=== PATIENT | female | born 1940 | race Caucasian/White ===

== ENCOUNTER 2018-08-12 14:22 | Emergency (ER) | payer MEDICARE ==
--- NOTE | 2018-08-12 14:33 | ERPHSYRPT ---
- History of Present Illness Time Seen by Provider: 08/12/18 14:33 Historian: patient Exam Limitations: no limitations Physician History: 77 y/o white female presents with cp intermittently for several day and nausea intermittently for 2 weeks. pt has a sig cardiac hx with cadz and cabg in past. pt denies soa. pt denies abd pain. initially there was radiation into left neck and back but radiation has resolved. Timing/Duration: day(s) (several days), intermittent Activities at Onset: none Quality: pressure Location: substernal Chest Pain Radiation: neck, back Severity of Pain-Max: mild Severity of Pain-Current: mild Modifying Factors: Improves With: nothing Associated Symptoms: nausea, fatigue, No cough Prior Chest Pain/Cardiac Workup: cardiac cath, heart attack Nitro Today/Relief: no nitro taken today Aspirin Treatment Today: 81 mg x 1 Allergies/Adverse Reactions: Iodinated Contrast- Oral and IV Dye [Iodinated Contrast Media - IV Dye] Allergy (Verified 08/12/18 14:55) shellfish derived Allergy (Verified 08/12/18 14:55) Home Medications: Aspirin [Aspir-Low] 81 mg PO DAILY 05/10/16 [History] Cholecalciferol (Vitamin D3) [Vitamin D] 1,000 unit PO DAILY 05/10/16 [ History] Simvastatin 40 mg [Zocor 40 mg] 40 mg DAILY 05/10/16 [History] Amlodipine Besylate 10 mg PO DAILY 08/12/18 [History] Clopidogrel Bisulfate [Clopidogrel] 75 mg PO DAILY 08/12/18 [History] Fluoxetine HCl 40 mg PO DAILY 08/12/18 [History] Hx Influenza Vaccination/Date Given: Yes - Review of Systems Constitutional: No Symptoms Eyes: No Symptoms Ears, Nose, & Throat: No Symptoms Respiratory: No Symptoms Cardiac: Chest Pain, No Palpitations, No Syncope Abdominal/Gastrointestinal: Nausea, No Abdominal Pain, No Vomiting, No Diarrhea Genitourinary Symptoms: No Symptoms, No Dysuria, No Frequency, No Hematuria Musculoskeletal: No Symptoms, No Back Pain, No Fall Skin: No Symptoms Neurological: No Symptoms Psychological: No Symptoms Endocrine: No Symptoms Hematologic/Lymphatic: No Symptoms Immunological/Allergic: No Symptoms All Other Systems: Reviewed and Negative - Past Medical History Pertinent Past Medical History: Yes Neurological History: Stroke ENT History: No Pertinent History Cardiac History: Coronary Artery Disease, Hypertension Respiratory History: No Pertinent History Endocrine Medical History: No Pertinent History Musculoskeletal History: Arthritis GI Medical History: No Pertinent History History: No Pertinent History Psycho-Social History: Depression Female Reproductive Disorders: No Pertinent History - Past Surgical History Past Surgical History: Yes Neuro Surgical History: No Pertinent History Cardiac: CABG, Cardiac Stent Respiratory: No Pertinent History Gastrointestinal: Colon Resection Genitourinary: No Pertinent History Musculoskeletal: No Pertinent History Female Surgical History: Hysterectomy Other Surgical History: benign moles removed from left cheek on Sunday, bandaid on face - Social History Smoking Status: Never smoker Exposure to second hand smoke: No Drug Use: none Patient Lives Alone: No - Nursing Vital Signs Nursing Vital Signs: Initial Vital Signs Pulse Rate 68 08/12/18 14:30 Respiratory Rate 25 H 08/12/18 14:30 Blood Pressure 178/94 08/12/18 14:30 O2 Sat by Pulse Oximetry 97 08/12/18 14:30 Pain Scale Pain Intensity 8 - Physical Exam General Appearance: no apparent distress, alert, anxiety Eye Exam: PERRL/EOMI Ears, Nose, Throat Exam: normal ENT inspection, moist mucous membranes Neck Exam: normal inspection, non-tender, supple, full range of motion Respiratory Exam: normal breath sounds, chest tenderness, lungs clear, airway intact, No respiratory distress, No accessory muscle use, No rhonchi, No wheezing, No stridor Cardiovascular Exam: regular rate/rhythm, normal heart sounds, normal peripheral pulses Gastrointestinal/Abdomen Exam: soft, normal bowel sounds, No tenderness, No guarding Pelvic Exam: not done Rectal Exam: not done Back Exam: normal inspection Extremity Exam: normal inspection, normal range of motion, pelvis stable Neurologic Exam: alert, oriented x 3, cooperative, can intake worker II-XII nml as tested Skin Exam: normal color, warm, dry Lymphatic Exam: No adenopathy SpO2 Interpretation: normal O2 Delivery: Room Air - Course Nursing assessment & vital signs reviewed: Yes EKG Interpreted by Me: RATE (68), Sinus Rhythm, NORMAL AXIS, Non-specific ST Changes, Other (no sig changes in ekg when compared to ekg dated 05/10/16) Ordered Tests: Active Orders 24 hr Category Date Time Status Human Resource Advisor STAT Care 08/12/18 14:34 Active EKG-ER Only STAT Care 08/12/18 14:33 Active IV Insertion STAT Care 08/12/18 14:33 Active Pulse Oximetry (ED) STAT Care 08/12/18 14:33 Active CHEST 1 VIEW (PORTABLE) Stat Exams 08/12/18 14:34 Completed CBC W DIFF Stat Lab 08/12/18 14:48 Completed CMP Stat Lab 08/12/18 14:48 Completed D-DIMER QUANTITATION Stat Lab 08/12/18 14:48 Completed NT PRO BNP Stat Lab 08/12/18 14:48 Completed PROTIME WITH INR Stat Lab 08/12/18 14:48 Completed TROPONIN Q3H Lab 08/12/18 14:48 Completed TROPONIN Q3H Lab 08/12/18 17:50 Completed TROPONIN Q3H Lab 08/12/18 20:45 Ordered TROPONIN Q3H Lab 08/13/18 02:45 Ordered TROPONIN Routine Lab 08/12/18 23:45 Ordered UA W/RFX UR CULTURE Stat Lab 08/12/18 15:49 Completed Medication Summary Discontinued Medications Generic Name Dose Route Start Last Admin Trade Name Freq PRN Reason Stop Dose Admin Aspirin 243 mg 08/12/18 14:50 08/12/18 15:04 Baby Aspirin 81 Mg Chew PO 08/12/18 14:51 243 mg STAT ONE Administration Aspirin Confirm 08/12/18 15:00 Baby Aspirin 81 Mg Chew Administered 08/12/18 15:01 Dose 243 mg .ROUTE .STK-MED ONE Nitroglycerin 0.4 mg 08/12/18 14:50 08/12/18 15:05 Nitrostat 0.4 Mg (Ed) SL 08/12/18 14:51 0.4 mg STAT ONE Administration Nitroglycerin Confirm 08/12/18 15:00 Nitrostat 0.4 Mg (Ed) Administered 08/12/18 15:01 Dose 0.4 mg SL .STK-MED ONE Ondansetron HCl 4 mg 08/12/18 14:50 08/12/18 15:05 Zofran 4 Mg/2 Ml Vial IV 08/12/18 14:51 4 mg STAT ONE Administration Ondansetron HCl Confirm 08/12/18 15:00 Zofran 4 Mg/2 Ml Vial Administered 08/12/18 15:01 Dose 4 mg .ROUTE .STK-MED ONE Lab/Rad Data: Laboratory Result Diagrams 08/12/18 14:48 08/12/18 14:48 Laboratory Results 08/12/18 08/12/18 08/12/18 Range/Units 17:50 16:20 15:49 WBC (4.0-10.5) K/mm3 RBC (4.1-5.4) M/mm3 Hgb (12.0-16.0) gm/dl Hct (35-47) % MCV (78-100) fl MCH (26-32) pg MCHC (32-36) g/dl RDW (11.5-14.0) % Plt Count (150-450) K/mm3 MPV (6-9.5) fl Gran % (36.0-66.0) % Eos # (Auto) (0-0.5) Absolute Lymphs (auto) (1.0-4.6) Absolute Monos (auto) (0.0-1.3) Lymphocytes % (24.0-44.0) % Monocytes % (0.0-12.0) % Eosinophils % (0.00-5.0) % Basophils % (0.0-0.4) % Absolute Granulocytes (1.4-6.9) Basophils # (0-0.4) PT (9.95-12.35) SECONDS INR (0.8-3.0) D-Dimer (215-500) ng/mL Sodium (137-145) mmol/L Potassium (3.5-5.1) mmol/L Chloride (98-107) mmol/L Carbon Dioxide (22-30) mmol/L Anion Gap (5-15) MEQ/L BUN (7-17) mg/dL Creatinine (0.52-1.04) mg/dL Estimated GFR ML/MIN Glucose (74-106) mg/dL Calcium (8.4-10.2) mg/dL Total Bilirubin (0.2-1.3) mg/dL AST (14-36) U/L ALT (0-35) U/L Alkaline Phosphatase (38-126) U/L Troponin I < 0.012 Cancelled (0.000-0.034) ng/mL NT-Pro-B Natriuret Pep (0-1800) pg/mL Serum Total Protein (6.3-8.2) g/dL Albumin (3.5-5.0) g/dL Urine Color STRAW (YELLOW) Urine Appearance CLEAR (CLEAR) Urine pH 6.0 (5-6) Ur Specific [place] 1.004 (1.005-1.025) Urine Protein NEGATIVE (Negative) Urine Ketones NEGATIVE (NEGATIVE) Urine Blood NEGATIVE (0-5) Jefe/ul Urine Nitrite NEGATIVE (NEGATIVE) Urine Bilirubin NEGATIVE (NEGATIVE) Urine Urobilinogen NORMAL (0-1) mg/dL Ur Leukocyte Esterase SMALL (NEGATIVE) Urine WBC (Auto) NONE SEEN (0-5) /HPF Urine RBC (Auto) NONE SEEN (0-2) /HPF U Epithel Cells (Auto) NONE (FEW) /HPF Urine Bacteria (Auto) RARE (NEGATIVE) /HPF Urine Culture Reflexed NO (NO) Urine Glucose NEGATIVE (NEGATIVE) mg/dL 08/12/18 08/12/18 08/12/18 Range/Units 14:48 14:48 14:48 WBC (4.0-10.5) K/mm3 RBC (4.1-5.4) M/mm3 Hgb (12.0-16.0) gm/dl Hct (35-47) % MCV (78-100) fl MCH (26-32) pg MCHC (32-36) g/dl RDW (11.5-14.0) % Plt Count (150-450) K/mm3 MPV (6-9.5) fl Gran % (36.0-66.0) % Eos # (Auto) (0-0.5) Absolute Lymphs (auto) (1.0-4.6) Absolute Monos (auto) (0.0-1.3) Lymphocytes % (24.0-44.0) % Monocytes % (0.0-12.0) % Eosinophils % (0.00-5.0) % Basophils % (0.0-0.4) % Absolute Granulocytes (1.4-6.9) Basophils # (0-0.4) PT 12.6 H (9.95-12.35) SECONDS INR 1.08 (0.8-3.0) D-Dimer 400 (215-500) ng/mL Sodium 136 L (137-145) mmol/L Potassium 4.1 (3.5-5.1) mmol/L Chloride 106 (98-107) mmol/L Carbon Dioxide 20 L (22-30) mmol/L Anion Gap 15.1 H (5-15) MEQ/L BUN 13 (7-17) mg/dL Creatinine 0.76 (0.52-1.04) mg/dL Estimated GFR > 60.0 ML/MIN Glucose 130 H (74-106) mg/dL Calcium 8.8 (8.4-10.2) mg/dL Total Bilirubin 0.80 (0.2-1.3) mg/dL AST 41 H (14-36) U/L ALT 24 (0-35) U/L Alkaline Phosphatase 67 (38-126) U/L Troponin I < 0.012 (0.000-0.034) ng/mL NT-Pro-B Natriuret Pep 182 (0-1800) pg/mL Serum Total Protein 7.6 (6.3-8.2) g/dL Albumin 4.4 (3.5-5.0) g/dL Urine Color (YELLOW) Urine Appearance (CLEAR) Urine pH (5-6) Ur Specific [place] (1.005-1.025) Urine Protein (Negative) Urine Ketones (NEGATIVE) Urine Blood (0-5) Jefe/ul Urine Nitrite (NEGATIVE) Urine Bilirubin (NEGATIVE) Urine Urobilinogen (0-1) mg/dL Ur Leukocyte Esterase (NEGATIVE) Urine WBC (Auto) (0-5) /HPF Urine RBC (Auto) (0-2) /HPF U Epithel Cells (Auto) (FEW) /HPF Urine Bacteria (Auto) (NEGATIVE) /HPF Urine Culture Reflexed (NO) Urine Glucose (NEGATIVE) mg/dL 08/12/18 Range/Units 14:48 WBC 5.7 (4.0-10.5) K/mm3 RBC 3.88 L (4.1-5.4) M/mm3 Hgb 12.9 (12.0-16.0) gm/dl Hct 39.1 (35-47) % MCV 100.8 H (78-100) fl MCH 33.2 H (26-32) pg MCHC 33.0 (32-36) g/dl RDW 13.4 (11.5-14.0) % Plt Count 225 (150-450) K/mm3 MPV 10.6 H (6-9.5) fl Gran % 59.3 (36.0-66.0) % Eos # (Auto) 0.13 (0-0.5) Absolute Lymphs (auto) 1.37 (1.0-4.6) Absolute Monos (auto) 0.78 (0.0-1.3) Lymphocytes % 24.0 (24.0-44.0) % Monocytes % 13.7 H (0.0-12.0) % Eosinophils % 2.3 (0.00-5.0) % Basophils % 0.7 (0.0-0.4) % Absolute Granulocytes 3.39 (1.4-6.9) Basophils # 0.04 (0-0.4) PT (9.95-12.35) SECONDS INR (0.8-3.0) D-Dimer (215-500) ng/mL Sodium (137-145) mmol/L Potassium (3.5-5.1) mmol/L Chloride (98-107) mmol/L Carbon Dioxide (22-30) mmol/L Anion Gap (5-15) MEQ/L BUN (7-17) mg/dL Creatinine (0.52-1.04) mg/dL Estimated GFR ML/MIN Glucose (74-106) mg/dL Calcium (8.4-10.2) mg/dL Total Bilirubin (0.2-1.3) mg/dL AST (14-36) U/L ALT (0-35) U/L Alkaline Phosphatase (38-126) U/L Troponin I (0.000-0.034) ng/mL NT-Pro-B Natriuret Pep (0-1800) pg/mL Serum Total Protein (6.3-8.2) g/dL Albumin (3.5-5.0) g/dL Urine Color (YELLOW) Urine Appearance (CLEAR) Urine pH (5-6) Ur Specific [place] (1.005-1.025) Urine Protein (Negative) Urine Ketones (NEGATIVE) Urine Blood (0-5) Jefe/ul Urine Nitrite (NEGATIVE) Urine Bilirubin (NEGATIVE) Urine Urobilinogen (0-1) mg/dL Ur Leukocyte Esterase (NEGATIVE) Urine WBC (Auto) (0-5) /HPF Urine RBC (Auto) (0-2) /HPF U Epithel Cells (Auto) (FEW) /HPF Urine Bacteria (Auto) (NEGATIVE) /HPF Urine Culture Reflexed (NO) Urine Glucose (NEGATIVE) mg/dL - Progress Progress: re-examined Air Movement: good Progress Note: 08/12/18 17:31 2nd ekg-hr 62, normal axis, nonspecific st changes. no change from prior ekg 08/12/18 18:36 pt states cp better after belching. 3 hour troponin normal Counseled pt/family regarding: lab results, diagnosis, need for follow-up, rad results - Departure Time of Disposition: 18:34 Departure Disposition: Home Clinical Impression: Chest pain Condition: Stable Critical Care Time: No Referrals: AVILA CARIAS [Primary Care Provider] - Additional Instructions: take your medications as prescribed. follow up with primary doctor and cardiac doctor for further managment.
[2018-08-12] MEDS ORDERED: BABY ASPIRIN 81 MG CHEW PO ONE (14:50)
[2018-08-12] MEDS ORDERED: Nitrostat 0.4 MG (ED) SL ONE ×2 (14:50→15:00)
[2018-08-12] MEDS ORDERED: Zofran 4 MG/2 ML VIAL IV ONE (14:50)
[2018-08-12 14:53] LABS: BASOPHIL % 0.7 % (0.0-0.4); Basophil (Absolute #) 0.04 (0-0.4); Eosinophil % 2.3 % (0.00-5.0); Eosinophil (Absolute #) 0.13 (0-0.5); Granulocyte Absolute (ANC) 3.39 (1.4-6.9); Granulocytes % 59.3 % (36.0-66.0); Hematocrit 39.1 % (35-47); Hemoglobin 12.9 gm/dl (12.0-16.0); Lymphocyte (Absolute #) 1.37 (1.0-4.6); Mean Cell Volume 100.8 fl (78-100); Mean Corpuscular Hemoglobin 33.2 pg (26-32); Mean Platelet Volume 10.6 fl (6-9.5); Monocyte (Absolute #) 0.78 (0.0-1.3); Monocytes % 13.7 % (0.0-12.0); Platelet Count 225 K/mm3 (150-450); Red Blood Count 3.88 M/mm3 (4.1-5.4); Red Cell Distribution Width 13.4 % (11.5-14.0); White Blood Count 5.7 K/mm3 (4.0-10.5)
--- NOTE | 2018-08-12 14:53 | XRAY ---
Indication: Chest pain. Comparison: None Portable apical lordotic chest clear with a few incidental tiny calcified granulomas. Heart is not enlarged with CABG surgery. Bony thorax intact with mild degenerative changes and scoliosis. Impression: Nonacute chest with chronic features.
[2018-08-12] MEDS ORDERED: Zofran 4 MG/2 ML VIAL ONE (15:00)
[2018-08-12] MEDS ORDERED: BABY ASPIRIN 81 MG CHEW ONE (15:00)
[2018-08-12 15:05] LABS: INR 1.08 (0.8-3.0); PROTIME 12.6 SECONDS (9.95-12.35)
[2018-08-12 16:12] LABS: ALBUMIN 4.4 g/dL (3.5-5.0); ALKALINE PHOSPHATASE 67 U/L (38-126); ANION GAP 15.1 MEQ/L (5-15); BLOOD UREA NITROGEN 13 mg/dL (7-17); CHLORIDE 106 mmol/L (98-107); Calcium 8.8 mg/dL (8.4-10.2); Carbon Dioxide 20 mmol/L (22-30); Creatinine 1 0.76 mg/dL (0.52-1.04); Glucose 130 mg/dL (74-106); NT PRO BNP 182 pg/mL (0-1800); Potassium 4.1 mmol/L (3.5-5.1); SGOT/AST 41 U/L (14-36); SGPT/ALT 24 U/L (0-35); SODIUM 136 mmol/L (137-145); Total Protein 7.6 g/dL (6.3-8.2)
[2018-08-12 17:37] VITALS: O2SAT 97
[2018-08-12 18:13] LABS: Appearance CLEAR (CLEAR); Bilirubin NEGATIVE (NEGATIVE); Glucose NEGATIVE (NEGATIVE); Ketones NEGATIVE (NEGATIVE); Leukocyte Esterase SMALL (NEGATIVE); Nitrite NEGATIVE (NEGATIVE); Protein,Urine Dip NEGATIVE (Negative); Specific Gravity 1.004 (1.005-1.025); Urobilinogen NORMAL mg/dL (0-1)
[2018-08-12 18:14] LABS: Bacteria RARE /HPF (NEGATIVE); Blood NEGATIVE Ery/ul (0-5); RBC NONE SEEN /HPF (0-2); WBC NONE SEEN /HPF (0-5)
[2018-08-12 18:50] VITALS: BP 146/69; PULSE 54
== END 2018-08-12 18:58 | disposition home or self-care (01) ==
LOC: ED 14:22
DX: R07.89 Other chest pain (principal); I25.810 Atherosclerosis of coronary artery bypass graft(s) without angina pectoris; Z79.899 Other long term (current) drug therapy; I10 Essential (primary) hypertension; F32.9 Major depressive disorder, single episode, unspecified
CPT/HCPCS: 36415; 71045; 80053; 81001; 83880; 84484; 85025; 85379; 85610; 93005; 93041; 96374; 99284; J2405; A9270-GY

== ENCOUNTER 2020-01-23 21:39 | Emergency (ER) | payer MEDICARE ==
[2020-01-23] MEDS ORDERED: Sodium Chloride 0.9% 1000 ML 1,000 ML IV SCH (22:15)
[2020-01-23 22:20] LABS: Absolute Neutrophil Ct (ANC) 4.16 (1.4-6.9); BASOPHIL % 0.7 % (0.0-0.4); Basophil (Absolute #) 0.05 (0-0.4); Eosinophil % 3.3 % (0.00-5.0); Eosinophil (Absolute #) 0.23 (0-0.5); Hematocrit 35.7 % (35-47); Hemoglobin 11.7 gm/dl (12.0-16.0); Lymphocyte (Absolute #) 1.57 (1.0-4.6); Lymphocytes % 22.3 % (24.0-44.0); Mean Cell Volume 98.9 fl (78-100); Mean Corpuscular Hemoglobin 32.4 pg (26-32); Mean Corpuscular Hgb Concent. 32.8 g/dl (32-36); Mean Platelet Volume 9.9 fl (7.5-11.0); Monocyte (Absolute #) 1.02 (0.0-1.3); Monocytes % 14.5 % (0.0-12.0); Neutrophil % 59.2 % (36.0-66.0); Platelet Count 225 K/mm3 (150-450); Red Blood Count 3.61 M/mm3 (4.1-5.4); Red Cell Distribution Width 13.7 % (11.5-14.0)
--- NOTE | 2020-01-23 22:25 | ERPHSYRPT ---
- History of Present Illness Time Seen by Provider: 01/23/20 21:55 Source: patient, family Exam Limitations: no limitations Patient Subjective Stated Complaint: family states that pts bp was low at home and she fell forward onto the bed. pt states she nearly passed out and hasnt been feeling well today. has had some dizziness today. family reports that pt's speech is not normal for her. Triage Nursing Assessment: pt awake and alert, answers questions approp. speech slurred . pt back per wheelchair and transfers to stretcher with assist of 1. respirations nonlabored. bilat upper and lower eztr strength equal. Physician History: This is a 79-year-old white female has a history of TIAs, CVAs, coronary disease, hypertension who was not feeling well all day today. Patient had a near syncopal episode earlier. Approximately 8:00 patient went into her bedroom and fell onto the bed this. It was the soft part of the bed. Her blood pressure was reading low at home. Patient takes metoprolol, amlodipine for her high blood pressure. Patient arrives from home speaking normally without evidence of any acute CVA symptoms. She is speaking clearly. She states that she was having some pressure in her chest but none at the time of this examination. She does not complain of any shortness of breath she has no abdo karyn pain. She denies nausea vomiting diarrhea. Patient's bench jeweler is Dr. Niko Angel. Timing/Duration: today Severity: mild Character of Deficits: none Deficits: off balance (Earlier today) Baseline/Normal Cognition: alert oriented x 3 Current Cognition: alert oriented x 3 Baseline Gait: walks w/o assistance Associated Symptoms: weakness, chest pain (Earlier today. None now), No slurred speech, No vision changes Allergies/Adverse Reactions: Iodinated Contrast Media [Iodinated Contrast Media - IV Dye] Allergy (Verified 08/12/18 14:55) shellfish derived Allergy (Verified 08/12/18 14:55) Home Medications: Aspirin [Aspir-Low] 81 mg PO DAILY 05/10/16 [History] Cholecalciferol (Vitamin D3) [Vitamin D] 1,000 unit PO DAILY 05/10/16 [History] Simvastatin 40 mg [Zocor 40 mg] 40 mg DAILY 05/10/16 [History] Amlodipine Besylate 10 mg PO DAILY 08/12/18 [History] Clopidogrel Bisulfate [Clopidogrel] 75 mg PO DAILY 08/12/18 [History] Fluoxetine HCl 40 mg PO DAILY 08/12/18 [History] Hx Influenza Vaccination/Date Given: Yes Travel Risk - International Travel Have you traveled outside of the country in past 3 weeks: No - Coronavirus Screening Are you exhibiting any of the following symptoms?: No Close contact with a COVID-19 positive Pt in past 14-21 Days: No - Review of Systems Constitutional: Weakness Eyes: No Symptoms Ears, Nose, & Throat: No Symptoms Respiratory: No Symptoms Cardiac: No Symptoms Abdominal/Gastrointestinal: No Symptoms Genitourinary Symptoms: No Symptoms Musculoskeletal: No Symptoms Skin: No Symptoms Neurological: No Symptoms Psychological: No Symptoms Endocrine: No Symptoms Hematologic/Lymphatic: No Symptoms Immunological/Allergic: No Symptoms All Other Systems: Reviewed and Negative - Past Medical History Pertinent Past Medical History: Yes Neurological History: Stroke ENT History: No Pertinent History Cardiac History: Coronary Artery Disease, Hypertension Respiratory History: No Pertinent History Endocrine Medical History: No Pertinent History Musculoskeletal History: Arthritis GI Medical History: No Pertinent History History: No Pertinent History Psycho-Social History: Depression Female Reproductive Disorders: No Pertinent History - Past Surgical History Past Surgical History: Yes Neuro Surgical History: No Pertinent History Cardiac: CABG, Cardiac Stent Respiratory: No Pertinent History Gastrointestinal: Colon Resection Genitourinary: No Pertinent History Musculoskeletal: No Pertinent History Female Surgical History: Hysterectomy Other Surgical History: e - Social History Smoking Status: Never smoker Exposure to second hand smoke: No Drug Use: none Patient Lives Alone: No - Nursing Vital Signs Nursing Vital Signs: Initial Vital Signs Pulse Rate 53 L 01/23/20 21:53 Respiratory Rate 16 01/23/20 21:53 Blood Pressure 129/71 01/23/20 21:53 O2 Sat by Pulse Oximetry 98 01/23/20 21:53 Pain Scale Pain Intensity 5 - [place] Coma Scale Best Eye Response ([place]): (4) open spontaneously Best Verbal Response ([place]): (5) oriented Best Motor Response ([place]): (6) obeys commands [place] Total: 15 - Physical Exam General Appearance: no apparent distress, alert, anxiety Eye Exam: bilateral eye: normal inspection, PERRL, EOMI Ears, Nose, Throat Exam: normal ENT inspection, moist mucous membranes Neck Exam: normal inspection, non-tender, supple, full range of motion Respiratory: normal breath sounds, lungs clear, respiratory distress, airway intact, No chest tenderness Cardiovascular: regular rate/rhythm, normal heart sounds, normal peripheral pulses, murmur Gastrointestinal: soft, normal bowel sounds, No tenderness Pelvic Exam: not done Rectal Exam: not done Back Exam: normal inspection, normal range of motion, No CVA tenderness, No vertebral tenderness Extremity Exam: normal inspection, normal range of motion, pelvis stable Mental Status: alert, oriented x 3, cooperative psychiatric social worker supervisor Exam: normal hearing, normal speech, PERRL, tongue midline Coordination/Gait: normal finger to nose Motor/Sensory: no motor deficit, no sensory deficit, no pronator drift Skin Exam: normal color, warm, dry SpO2 Interpretation: normal SpO2: 98 O2 Delivery: Room Air - Course Nursing assessment & vital signs reviewed: Yes EKG Interpreted by Me: RATE (52), Sinus Rhythm, NORMAL AXIS, NORMAL INTERVALS, Non-specific ST Changes, Other (Is left ventricular hypertrophy. There are no acute ischemic changes on current EKG. When compared to EKG dated 08/12/2018 there are no significant acute changes.) Ordered Tests: Active Orders 24 hr Category Date Time Status Director Of Sustainable Design STAT Care 01/23/20 22:09 Active EKG-ER Only STAT Care 01/23/20 22:08 Active IV Insertion STAT Care 01/23/20 22:08 Active NPO (ED) STAT Care 01/23/20 22:08 Active Pulse Oximetry (ED) STAT Care 01/23/20 22:08 Active HEAD WITHOUT CONTRAST [CT] Stat Exams 01/23/20 21:49 Taken CBC W DIFF Stat Lab 01/23/20 22:15 Completed CMP Stat Lab 01/23/20 22:10 Completed CULTURE,URINE Stat Lab 01/23/20 23:45 Received Lactic Acid Stat Lab 01/23/20 22:55 Completed PROTIME WITH INR Stat Lab 01/23/20 22:15 Completed TROPONIN Q3H Lab 01/23/20 22:15 Completed UA W/RFX UR CULTURE Stat Lab 01/23/20 23:45 Completed Medication Summary Generic Name Dose Route Start Last Admin Trade Name Freq PRN Reason Stop Dose Admin Sodium Chloride 1,000 mls @ 50 mls/hr 01/23/20 22:15 01/23/20 22:35 Sodium Chloride 0.9% 1000 Ml IV 02/22/20 22:14 50 mls/hr .Q20H RAUL Administration Lab/Rad Data: Laboratory Result Diagrams 01/23/20 22:15 01/23/20 22:10 Laboratory Results 01/23/20 01/23/20 01/23/20 Range/Units 23:45 22:55 22:15 WBC (4.0-10.5) K/mm3 RBC (4.1-5.4) M/mm3 Hgb (12.0-16.0) gm/dl Hct (35-47) % MCV (78-100) fl MCH (26-32) pg MCHC (32-36) g/dl RDW (11.5-14.0) % Plt Count (150-450) K/mm3 MPV (7.5-11.0) fl Gran % (36.0-66.0) % Eos # (Auto) (0-0.5) Absolute Lymphs (auto) (1.0-4.6) Absolute Monos (auto) (0.0-1.3) Lymphocytes % (24.0-44.0) % Monocytes % (0.0-12.0) % Eosinophils % (0.00-5.0) % Basophils % (0.0-0.4) % Absolute Granulocytes (1.4-6.9) Basophils # (0-0.4) PT (9.95-12.35) SECONDS INR (0.8-3.0) Sodium (137-145) mmol/L Potassium (3.5-5.1) mmol/L Chloride (98-107) mmol/L Carbon Dioxide (22-30) mmol/L Anion Gap (5-15) MEQ/L BUN (7-17) mg/dL Creatinine (0.52-1.04) mg/dL Estimated GFR ML/MIN Glucose (74-106) mg/dL Lactic Acid 1.1 (0.4-2.0) Calcium (8.4-10.2) mg/dL Total Bilirubin (0.2-1.3) mg/dL AST (14-36) U/L ALT (0-35) U/L Alkaline Phosphatase (38-126) U/L Troponin I < 0.012 (0.000-0.034) ng/mL Serum Total Protein (6.3-8.2) g/dL Albumin (3.5-5.0) g/dL Urine Color [place] (YELLOW) Urine Appearance SLIGHTLY CLOUDY (CLEAR) Urine pH 5.0 (5-6) Ur Specific [place] 1.028 (1.005-1.025) Urine Protein 30 (Negative) Urine Ketones NEGATIVE (NEGATIVE) Urine Blood NEGATIVE (0-5) Jefe/ul Urine Nitrite POSITIVE (NEGATIVE) Urine Bilirubin SMALL (NEGATIVE) Urine Urobilinogen 2 (0-1) mg/dL Ur Leukocyte Esterase TRACE (NEGATIVE) Urine WBC (Auto) 16-25 (0-5) /HPF Urine RBC (Auto) 0-2 (0-2) /HPF U Epithel Cells (Auto) NONE (FEW) /HPF Urine Bacteria (Auto) FEW (NEGATIVE) /HPF Urine Mucus (Auto) MODERATE (NEGATIVE) /HPF Urine Culture Reflexed YES (NO) Urine Glucose 50 (NEGATIVE) mg/dL 01/23/20 01/23/20 01/23/20 Range/Units 22:15 22:15 22:10 WBC 7.0 (4.0-10.5) K/mm3 RBC 3.61 L (4.1-5.4) M/mm3 Hgb 11.7 L (12.0-16.0) gm/dl Hct 35.7 (35-47) % MCV 98.9 (78-100) fl MCH 32.4 H (26-32) pg MCHC 32.8 (32-36) g/dl RDW 13.7 (11.5-14.0) % Plt Count 225 (150-450) K/mm3 MPV 9.9 (7.5-11.0) fl Gran % 59.2 (36.0-66.0) % Eos # (Auto) 0.23 (0-0.5) Absolute Lymphs (auto) 1.57 (1.0-4.6) Absolute Monos (auto) 1.02 (0.0-1.3) Lymphocytes % 22.3 L (24.0-44.0) % Monocytes % 14.5 H (0.0-12.0) % Eosinophils % 3.3 (0.00-5.0) % Basophils % 0.7 (0.0-0.4) % Absolute Granulocytes 4.16 (1.4-6.9) Basophils # 0.05 (0-0.4) PT 12.8 H (9.95-12.35) SECONDS INR 1.13 (0.8-3.0) Sodium 136 L (137-145) mmol/L Potassium 4.0 (3.5-5.1) mmol/L Chloride 103 (98-107) mmol/L Carbon Dioxide 26 (22-30) mmol/L Anion Gap 11.2 (5-15) MEQ/L BUN 15 (7-17) mg/dL Creatinine 0.91 (0.52-1.04) mg/dL Estimated GFR > 60.0 ML/MIN Glucose 108 H (74-106) mg/dL Lactic Acid (0.4-2.0) Calcium 8.6 (8.4-10.2) mg/dL Total Bilirubin 0.40 (0.2-1.3) mg/dL AST 42 H (14-36) U/L ALT 34 (0-35) U/L Alkaline Phosphatase 83 (38-126) U/L Troponin I (0.000-0.034) ng/mL Serum Total Protein 6.9 (6.3-8.2) g/dL Albumin 4.0 (3.5-5.0) g/dL Urine Color (YELLOW) Urine Appearance (CLEAR) Urine pH (5-6) Ur Specific [place] (1.005-1.025) Urine Protein (Negative) Urine Ketones (NEGATIVE) Urine Blood (0-5) Jefe/ul Urine Nitrite (NEGATIVE) Urine Bilirubin (NEGATIVE) Urine Urobilinogen (0-1) mg/dL Ur Leukocyte Esterase (NEGATIVE) Urine WBC (Auto) (0-5) /HPF Urine RBC (Auto) (0-2) /HPF U Epithel Cells (Auto) (FEW) /HPF Urine Bacteria (Auto) (NEGATIVE) /HPF Urine Mucus (Auto) (NEGATIVE) /HPF Urine Culture Reflexed (NO) Urine Glucose (NEGATIVE) mg/dL - Progress Progress: improved, re-examined Progress Note: 01/24/20 00:02 Patient states she is feeling much better. Her and her daughter feel comfortable going home if her troponin is normal and her urinalysis is either clear or his urinary tract infection that can be treated as an outpatient. Patient has no abdominal pain she has no chest pain and she has no shortness of breath at this time. 01/24/20 00:09 CAT scan of the head reveals remote lacunar infarct in the right thalamus and the left basal ganglia. 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 On the report of the CAT scan from the radiologist, there is no mention of any acute intracranial abnormality 01/24/20 01:23 States she is is ready to be discharged to home. She is in joking and laughing with her daughter. She has no abdominal pain, no chest pain and no shortness of breath. Counseled pt/family regarding: lab results, diagnosis, need for follow-up, rad results - Departure Departure Disposition: Home Clinical Impression: Weakness, UTI (urinary tract infection) Condition: Stable Critical Care Time: No Referrals: AVILA CARIAS [Primary Care Provider] - Additional Instructions: Drink plenty of fluids. Fill your antibiotic prescription later today. Return to the emergency department if your symptoms worsen. Follow-up with your primary care physician for persistent symptoms. Prescriptions: Ciprofloxacin [Cipro 500 MG] 500 mg PO BID #14 tablet
[2020-01-23 22:26] LABS: INR 1.13 (0.8-3.0); PROTIME 12.8 SECONDS (9.95-12.35)
[2020-01-23 22:30] LABS: ALKALINE PHOSPHATASE 83 U/L (38-126); ANION GAP 11.2 MEQ/L (5-15); BLOOD UREA NITROGEN 15 mg/dL (7-17); CHLORIDE 103 mmol/L (98-107); Calcium 8.6 mg/dL (8.4-10.2); Carbon Dioxide 26 mmol/L (22-30); Creatinine 1 0.91 mg/dL (0.52-1.04); Glucose 108 mg/dL (74-106); SGOT/AST 42 U/L (14-36); SGPT/ALT 34 U/L (0-35); SODIUM 136 mmol/L (137-145); Total Protein 6.9 g/dL (6.3-8.2)
[2020-01-23] MEDS ORDERED: Sodium Chloride 0.9% 1000 ML 1,000 ML ONE (22:30)
[2020-01-24 00:02] LABS: Appearance SLIGHTLY CLOUDY (CLEAR); Bacteria FEW /HPF (NEGATIVE); Bilirubin SMALL (NEGATIVE); Blood NEGATIVE Ery/ul (0-5); Glucose 50 mg/dL (NEGATIVE); Ketones NEGATIVE (NEGATIVE); Leukocyte Esterase TRACE (NEGATIVE); Mucus MODERATE /HPF (NEGATIVE); Nitrite POSITIVE (NEGATIVE); Protein,Urine Dip 30 (Negative); RBC 0-2 /HPF (0-2); Specific Gravity 1.028 (1.005-1.025); Urobilinogen 2 mg/dL (0-1)
[2020-01-24] MEDS ORDERED: ROCEPHIN 1 Gm-D5w 50 ml Bag** 1 G/50 ML IVPB IV STA (01:22)
[2020-01-24] MEDS ORDERED: ROCEPHIN 1 Gm-D5w 50 ml Bag** 1 G/50 ML IVPB IV ONE (01:34)
[2020-01-24 01:56] VITALS: BP 136/97; PULSE 59; O2SAT 97
--- NOTE | 2020-01-24 08:13 | XRAY ---
Indication: Stroke symptoms. Dizziness prior to fall. History stroke. Multiple contiguous axial images obtained through the head without contrast. Comparison: May 10, 2016. There remains age-appropriate global atrophy and mild periventricular degenerative micro-ischemia bilaterally. Stable small right cerebellum and tiny left cerebellum old infarcts. New finding for old lacunar infarcts right thalamus and left basal ganglia. No acute intracranial hemorrhage, hydrocephalus, or mass effect. Fourth ventricle is midline. Bony calvarium intact. Visualized paranasal sinuses and mastoid air cells are clear. Impression: 1. New finding old lacunar infarcts right thalamus and left basal ganglia. 2. Again atrophy, degenerative micro-ischemia, and old bilateral cerebellar infarcts. 3. No acute intracranial abnormalities.
== END 2020-01-24 02:10 | disposition home or self-care (01) ==
LOC: ED 21:39
DX: R53.1 Weakness (principal); N39.0 Urinary tract infection, site not specified
CPT/HCPCS: 36000; 36415; 70450; 80053; 81001; 83605; 84484; 85025; 85610; 87077; 87086; 87186; 93005; 93041; 94760; 96360; 96361; 96365; 99284; J0696